=== PATIENT | female | born 1960 | race Caucasian/White ===

== ENCOUNTER 2017-03-28 06:54 | Day surgery (SDC) | payer BC, OTHER ==
[~2017-03-28 06:54] MED LIST: RINGER'S SOLUTION,LACTATED 1,000 ML IV PRN; ceFAZolin SODIUM 1 GM VIAL IV PRN
[2017-03-28] MEDS ORDERED: RINGER'S SOLUTION,LACTATED 1,000 ML IV ONE (07:33)
[2017-03-28] MEDS ORDERED: BUPIVACAINE HCL 50 ML VIAL IJ ONE ×3 (08:20)
--- NOTE | 2017-03-28 10:15 | POSTOP NO ---
Date of Surgery: 03/28/17 Patient Tolerated the Procedure: Well Post Operative Diagnosis/Procedures: Public Health Advisor: Thai Hector PA-C Post-operative Diagnosis: Left thumb carpometacarpal arthritis, volar radial wrist ganglion Finding: Above Procedure: Left thumb carpometacarpal arthroplasty, excision of volar radial wrist ganglion Estimated Blood Loss: Minimal Specimens: Bone for disposal, ganglion to pathology
--- NOTE | 2017-03-28 10:20 | OR ---
Operative Report - Dictated Report Narrative: Date: 03/28/2017 Surgeon: Francisco King M.D. Personal Banking Representative: Thai Hector PA-C Preoperative diagnosis: Left Thumb carpometacarpal arthrosis, volar radial wrist mass Postoperative diagnosis: Left Thumb carpometacarpal arthrosis, volar radial wrist mass Operation: Left Thumb resection suspension arthroplasty of the carpo-metacarpal joint, excision of volar radial wrist mass Retained implants: 0.45 smooth Mirna wire pin cap Anesthesia: General plus local Tourniquet time: 87 Minutes at 250 mmHg Estimated blood loss: Minimal Drains: None Specimen: Bone for disposal , wrist mass to pathology Complications: None Indications: Mrs. Allen is a 57-year-old female who is seen in the clinic for complaints of left thumb arthrosis and volar radial wrist mass. That failed conservative measures including but not limited to injections, medications, splinting, activity modification, and or therapy. Radiographs revealed advanced arthrosis of the thumb carpometacarpal joint and they wish to proceed with surgical treatment. The risks, benefits, and alternatives were discussed in the clinic. The risks of , blood clots, bleeding, infection, damage to nerve, tendon , or blood vessels, stiffness, weakness, persistent pain, deformity, and need for additional procedures were reviewed. She wished to proceed with the procedure. Procedure: After marking the correct extremity in the preoperative holding area, the patient was taken to the operating room and timeout was performed. IV antibiotics consisting of Ancef were administered. An attempt at starting with Mac anesthesia however she was uncomfortable and thus we transitioned to a general anesthetic by anesthesia per my request. A well-padded tourniquet was applied to the upper arm. The surgical arm was then prepped and draped in a standard sterile fashion. After exsanguinating the extremity, the tourniquet was inflated to 250 mmHg. A longitudinal incision approximately 6 cm in length was made centered over the dorsal aspect of the thumb carpometacarpal joint. This was bluntly dissected down to the subcutaneous tissue protecting the dorsal branch of the radial nerve and any other cutaneous nerves and vessels encountered. A capsulotomy and periosteal elevation was performed between the extensor pollicis brevis and extensor pollicis longus. The base of the thumb metacarpal as well as the trapezium were exposed and the soft tissues and capsule were elevated off this. Utilizing a oscillating saw, approximately 5 mm of the base of the thumb metacarpal was removed including the arthritic joint surface with the marginal osteophytes. The trapezium was then quartered and excised using a combination of ronguer and [place] blade. Care was taken to protect the deep flexor carpi radialis tendon. Once the trapezium was fully excised the flexor carpi radialis tendon was dissected down to its insertion on the index metacarpal and tagged with an umbilical tape. Next we excised the volar radial wrist mass. A longitudinal incision was made over the mass. Blunt dissection was carried down to just ulnar to the radial artery. The radial artery was identified and protected. The mass which the patient states was much larger prior appeared to be about 5-7 mm in size and consistent with a likely ganglion. This was traced down to its stalk near the joint which was transected and excised. Attention was then turned to the procurement of the flexor carpal radialis tendon over the volar forearm. 2 small transverse incisions were made at the distal and musculotendinous portions of the flexor carpi radialis tendon. Blunt dissection was carried through subcutaneous tissue down to the flexor tendon. The flexor carpal radius tendon was tagged distally and then transected at the muscle tendinous junction proximally and mobilized into the thumb wound. The muscle attached to the tendon was then removed using a scalpel. The tendon was wrapped in a moist Ray-Rajan sponge. A bur was utilized in order to make a tunnel through the base of the thumb metacarpal approximately a centimeter distal exiting over the volar and ulnar aspect of the thumb metacarpal in line with the thumb nail. This was enlarged to accommodate the tendon and the bony edges were burred to make this a smooth return of the tendon on itself. The tendon was then passed through the tunnel without any complications. A 0.45 smooth Mirna wire was placed through the thumb metacarpal into the index metacarpal using mini C-arm to confirm placement of the thumb in a pinch sap abap programmer position suspended at the level of the index metacarpal. 4-0 Ethibond suture was placed deep in the capsule in order to stabilize the tendon graft. 4-0 Ethibond was utilized in order to repair the tendon back to itself as well as to the periosteum as it exited the tunnel. The tendon was then rolled into an anchovy orientation and secured with 4-0 Ethibond suture. 2 Vj needles were placed in order to pass the previously placed 4-0 Ethibond which was deep in the resected trapezium area and passed through the tendon in order to secure the tendon into the base of the wound. This allowed for filling of the defect from the prior removed trapezium. The wounds were then thoroughly irrigated. Tourniquet was deflated and hemostasis was obtained with bipolar cautery. 4-0 nylon was used to close the tendon procurement site. 4-0 Vicryl was utilized in order to repair the joint capsule and periosteum onto the tendon graft. Subcutaneous 4-0 Vicryl and 4-0 nylon on the skin were utilized in order to close the thumb wound. The K wire was bent and capped outside the skin. Xeroform, 4 x 4's, soft roll, and a well-padded thumb spica splint were applied and the patient was awoken and transferred to postanesthesia care unit in stable condition. All sponge, needle, sharp, and instrument counts were correct prior to closing the wounds.
[2017-03-28] MEDS ORDERED: RINGER'S SOLUTION,LACTATED 1,000 ML IV PRN (11:32)
[2017-03-28] MEDS ORDERED: HYDROmorphone HCL 2 MG/ML VIAL IV PRN (11:34)
[2017-03-28] MEDS ORDERED: traMADol HCL 50 MG TABLET ONE (11:38)
[2017-03-28 11:56] VITALS: BP 153/79
[2017-03-28] MEDS ORDERED: traMADol HCL 50 MG TABLET PO ONE (12:00)
== END 2017-03-28 06:55 | disposition home or self-care (01) ==
LOC: AMB 06:54
PROVIDERS: ATTEND Orthopaedic Surgery
PROC: 0XBF0ZZ Excision of Left Lower Arm, Open Approach (ICD-10-PCS; 2017-03-28)
PROC: 0RUT07Z Supplement Left Carpometacarpal Joint with Autologous Tissue Substitute, Open Approach (ICD-10-PCS; principal; 2017-03-28 08:00)
PROC: 0LB60ZZ Excision of Left Lower Arm and Wrist Tendon, Open Approach (ICD-10-PCS; 2017-03-28 08:00)
DX: M18.12 Unilateral primary osteoarthritis of first carpometacarpal joint, left hand (principal); M67.432 Ganglion, left wrist; I10 Essential (primary) hypertension; F41.1 Generalized anxiety disorder; Z68.26 Body mass index [BMI] 26.0-26.9, adult

== ENCOUNTER 2019-10-21 06:09 | Inpatient (IN) ==
[~2019-10-21 06:09] MED LIST changes: -RINGER'S SOLUTION,LACTATED 1,000 ML IV PRN; +TRANEXAMIC ACID 1,000 MG in NORMAL SALINE 100 ML IV PRN
[2019-10-21] MEDS ORDERED: ceFAZolin SODIUM 1 GM VIAL ONE (07:03)
[2019-10-21] MEDS ORDERED: ISOPROPYL ALCOHOL 480 APPL BTL MC ONE (07:03)
[2019-10-21] MEDS: RINGER'S SOLUTION,LACTATED 1,000 ML IV PRN ×2 (07:13→08:45)
--- NOTE | 2019-10-21 07:13 | ANES ---
Anesthesia Pre Procedure Eval Vitals/Labs: Last Vital Signs Temp 36.2 C 10/21/19 06:39 Pulse 72 10/21/19 06:39 Resp 18 10/21/19 06:39 BP 146/85 H 10/21/19 06:39 Pulse Ox 99 10/21/19 06:39 HOME MEDICATIONS Calcium Carbonate/Vitamin D3 [Calcium 500+D Tablet Chew] 1 ea PO DAILY 06/26/15 [Last Taken 10/20/19] Cetirizine HCl [Zyrtec] 10 mg PO DAILY PRN 06/26/15 [Last Taken 03/27/18] Fluticasone Propionate [Flonase] 1 spray NS BID PRN 06/26/15 [Last Taken Unknown] Cholecalciferol (Vitamin D3) [Vitamin D] 2,000 unit PO DAILY 03/13/17 [Last Taken 10/20/19] sour head extract 1,000 mg capsule 600 mg PO BID cap 11/21/17 [Last Taken 10/16/19] ibuprofen 200 mg tablet 800 mg PO Q8H PRN tab 03/17/18 [Last Taken 10/13/19] olopatadine 0.1 % eye drops 1 drp OP BID PRN #5 ml 11/03/18 [Last Taken Unknown] propranolol 80 mg tablet 40 mg PO BID #45 tab 03/25/19 [Last Taken 10/21/19] alprazolam 0.25 mg tablet 0.25 mg PO TID PRN 30 Days #90 tab 05/20/19 [Last Taken 10/21/19] gabapentin 100 mg capsule 100 mg PO TID #270 cap 07/27/19 [Last Taken 10/20/19] dicyclomine 20 mg tablet 20 mg PO QID PRN #30 tab 09/14/19 [Last Taken Unknown] tramadol 50 mg tablet 50 mg PO Q6H PRN #60 tab 09/29/19 [Last Taken Unknown] gabapentin 300 mg capsule 300 mg PO HS #30 cap 10/04/19 [Last Taken 10/21/19] duloxetine 30 mg capsule,delayed release 30 mg PO DAILY #30 cap 10/05/19 [Last Taken 10/21/19] Diclofenac Sodium [Voltaren] 2 g TOPICAL TID PRN 10/21/19 [Last Taken Unknown] Pantoprazole Sodium 1 tab PO HS 10/21/19 [Last Taken 10/20/19] Allergies/Adverse Reactions: Allergies Allergy/AdvReac Type Severity Reaction Status Date / Time hydromorphone [From Dilaudid] AdvReac Severe severe Verified 10/21/19 06:31 vomiting meperidine HCl [From Demerol] AdvReac Severe SEVERE Verified 10/21/19 06:31 PROLONGED VOMITING trastuzumab [From Herceptin] AdvReac Severe Anaphylaxis Verified 10/21/19 06:31 - Planned Procedure Planned Procedure: Left Anatomic Total Shoulder Medication List Reviewed:: Yes Allergies Verified: Yes Medical History (Last Reviewed 10/21/19 @ 07:09 by Ok Parisi CRNA) Chemotherapy adverse reaction (Resolved) Fatigue due to treatment (Resolved) 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) Ganglion cyst (Acute) Cataracts, bilateral Non-tobacco user Seldom use of alcohol Wears glasses Arthritis Onset Date: Unknown Degenerative joint disease (DJD) of hip Onset Date: Unknown left Hypertension Onset Date: Unknown Migraine Onset Date: Unknown Post menopausal syndrome Onset Date: Unknown Right elbow pain Onset Date: Unknown Abnormal Pap smear of cervix over 30 years ago Anxiety Onset Date: Unknown Breast neoplasm Onset Date: Unknown left Cataract (lens) fragments in eye following cataract surgery, left eye Onset Date: ~03/01/19 Dislocation, metatarsophalangeal Onset Date: Unknown right 2nd and 3rd Hand pain Onset Date: Unknown Neuroma Onset Date: Unknown Trochanteric bursitis, left hip Onset Date: Unknown chemotherapy treatment Onset Date: 04/07/14 resolved Surgical History (Last Reviewed 10/21/19 @ 07:09 by Ok Parisi CRNA) H/O colonoscopy Onset Date: ~2004 [facility]-normal H/O foot surgery Onset Date: 06/25/15 R 2,3 MT head resections, excision neuroma H/O mastectomy Onset Date: 12/22/14 left History of arthroscopy of left knee Onset Date: ~1978 w/meniscal tear repair History of section Onset Date: ~1994 History of colposcopy History of esophagogastroduodenoscopy (EGD) Onset Date: ~2004 [facility] Hx of cholecystectomy Onset Date: ~2003 lap Right Thumb resection suspension arthroplasty of the carpo-m Onset Date: 03/27/18 Dr King S/P cataract surgery Onset Date: ~03/01/19 left - 03/01/19, right - 03/29/19 arthroplasty of cmc Onset Date: 03/28/17 left thumb resection suspension arthroplasty of the carpo-metacarpal joint, excision of volar radial wrist mass per Dr King, 03/27/18 right wrist by Family History (Last Reviewed 10/21/19 @ 07:09 by Ok Parisi CRNA) Father , 80 Diabetes AAA (abdominal aortic aneurysm) Heart disease Melanoma dx age 60's Myocardial infarction Mother , 90 Osteoporosis Heart disease Brother Alcoholism Son Sera Danlos syndrome, asthma, allergies Daughter Sera-Danlos syndrome type III Cerebral palsy with spastic diplegia Brother Diabetes Cancer of kidney dx age 60's Brother Diabetes Brother Liver cancer dx age 60's Bladder cancer dx age 60's Brother AAA (abdominal aortic aneurysm) - Family Anesthesia History Family History:: no untoward family reactions to anesthesia, no familial bleeding tendencies, no family history of clotting disorders, no family history of premature - Airway/Neck/Teeth Within Normal Limits:: Yes Teeth Condition: intact Mallampatti Score: 2 Thyromental (T-M) distance: > 6 cm Mandibulo Hyoid distance: > 3 cm - Respiratory Respiratory Physical: lungs clear Smoking Status: Never smoker Discussed smoking cessation including day of surgery: No Sleep Apnea currently treated: No Sleep Apnea by current assessment: No Discussed Risks/Treatment of KRISTOPHER: No - Gastrointestinal NPO since: mn - Anesthesia Assessment and Plan ASA Class: PS, II Anesthesia Type Plan: General LMA, Block - ultrasound guided interscalene nerve block for postop analgesia
[2019-10-21] MEDS ORDERED: fentaNYL CITRATE/PF 50 MCG/ML AMPUL ONE (07:27)
[2019-10-21] MEDS ORDERED: LIDOCAINE HCL 20 ML VIAL ONE (07:27)
[2019-10-21] MEDS ORDERED: ONDANSETRON HCL/PF 2 MG/ML VIAL ONE (07:27)
[2019-10-21] MEDS ORDERED: BUPIVACAINE HCL/EPINEPHRINE/PF 30 ML VIAL IJ ONE (07:27)
[2019-10-21] MEDS ORDERED: KETOROLAC TROMETHAMINE 30 MG/ML VIAL ONE (07:27)
[2019-10-21] MEDS ORDERED: PROPOFOL VIAL IV ONE (07:27)
[2019-10-21] MEDS ORDERED: MAG HYDROX/ALUMINUM HYD/SIMETH 30 ML UDC PO PRN (10:05)
[2019-10-21] MEDS ORDERED: ACETAMINOPHEN 500 MG TABLET PO PRN (10:05)
[2019-10-21] MEDS ORDERED: MAGNESIUM HYDROXIDE 30 ML UDC PO PRN (10:05)
[2019-10-21] MEDS ORDERED: NORMAL SALINE 1,000 ML IV PRN (10:05)
[2019-10-21] MEDS ORDERED: HYDROcodone/ACETAMINOPHEN 1 EACH TABLET PO PRN ×2 (10:05)
[2019-10-21] MEDS ORDERED: DICYCLOMINE HCL 20 MG TABLET PO PRN (10:11)
[2019-10-21] MEDS ORDERED: FLUTICASONE PROPIONATE 120 SPRAY INHALER NS PRN (10:11)
[2019-10-21] MEDS ORDERED: LORATADINE 10 MG TABLET PO PRN (10:11)
[2019-10-21] MEDS ORDERED: OLOPATADINE HCL 50 DROP BTL OP PRN (10:11)
[2019-10-21] MEDS ORDERED: ALPRAZolam 0.25 MG TABLET PO PRN (10:11)
--- NOTE | 2019-10-21 10:18 | OR ---
Operative Report - Dictated Report Narrative: Date: 10/21/2019 Physician: Mars Ceron M.D. Race Car Mechanic: Juanjose Macdonald PA-C provided a set of essential, skilled, educated hands that assisted in positioning, transfer, retraction, manipulation, irrigation, closure of wounds, and placement of dressings all of which could not be provided by the available surgical crew. Preoperative diagnosis: Left glenohumeral osteoarthritis Postoperative diagnosis: Left glenohumeral osteoarthritis Procedure: Left anatomic total shoulder arthroplasty Anesthesia: General plus regional Complications: None Estimated blood loss: 100 mL Specimens: Bone for disposal Retained implants: Depuy Global Unite size 10 standard stem, Global Unite anatomic proximal body size 10, Global Unite eccentric humeral head 44 mm x 18 mm, Global anchor peg glenoid size 40 mm Drains: None Indications: Ann is a 59 year-old female who has been followed in my clinic with complaints of shoulder pain consistent with left glenohumeral arthritis. Physical exam and diagnostic imaging were consistent with his complaints and concern for glenohumeral arthritis with an intact rotator cuff. Conservative measures have failed including, but not limited to, passage of time, activity modification, medications, physical therapy/home exercise program, or injections. The risks, benefits, and alternatives were discussed in clinic. The risks being , bleeding, infection, blood clots, nerve, tendon, ligament, blood vessel injury, persistent pain, arthrosis, stiffness, need for prolonged therapy, implant failure/loosening, need for additional procedures, and persistent symptoms. Consent was obtained in the clinic. Procedure: After marking the correct extremity in the preoperative holding area, a timeout was performed in the operating room. IV antibiotics consisting of 1 g of Ancef were administered prior to the procedure. A general followed by regional anesthetic was induced by the nurse operations manager station. This was in the supine position, then the patient was transitioned to a beachchair position with all bony prominences well-padded, head in neutral, the nonoperative arm well supported, and the legs padded with SCDs in place. The operative shoulder was then prepped and draped in a standard sterile fashion. Preoperatively the shoul alen had slightly limited abduction and external rotation. After marking out the bony landmarks, an approximately 10 cm deltopectoral incision was marked out and incised with a sharp knife. A combination of blunt dissection and electrocautery was carried down through subcutaneous tissue to the level of the deltopectoral fascia. The fascial interval was developed with Metzenbaum scissors identifying the cephalic vein which was protected. Blunt finger dissection was used to develop the deltopectoral interval and the deltoid and cephalic vein were retracted laterally while the pectoralis major was retracted medially. This revealed the conjoined tendon and anterior aspect of the shoulder. The bicipital groove was identified as well as the lesser tuberosity and we marked out our location for our subscapularis tenotomy. The subscapularis tendon was tagged with Vicryl suture and then peeled off of its insertion. Our incision was carried up through the rotator cuff interval to the level of the glenoid. The inferior aspect of the subscapularis as well as the inferior capsule was released taking care to protect the axillary nerve. The capsule was then released from the anterior and inferior aspects of the glenoid. At this point the arm was externally rotated and the shoulder dislocated delivering the humeral head up and out of the wound. The supraspinatus tendon was inspected and noted to be intact. At this point we identified our starting point for the humeral starting reamer centered over the intramedullary canal just onto the articular surface of the superior aspect of the humeral head. The entry reamer was advanced down the intramedullary canal of the humerus. Sequential hand reaming up to a size 10 mm reamer was performed achieving good chatter cortical chatter. The reamer was left in place and then the humeral head cutting jig was attached. This was placed in approximately 25 of retroversion at the appropriate height based on the level of the greater tu berosity. This was then pinned into place and the reamer removed. The humeral head was then resected being careful to protect the supraspinatus insertion. A rongeur was used to clean up some anterior and inferior osteophyte. A protective metal cap was then placed over the cut end of the proximal humerus. Attention was then turned to the glenoid. A series of glenoid retractors were used to retract the humeral head posteriorly and inferior out of the way well as to retract the anterior soft tissue giving us 360 exposure of the glenoid. The labrum was then removed in its entirety with a sharp knife. The base of the coracoid was identified as well as the inferior/lateral border of the scapula and these were marked out to establish the bony anatomy of the glenoid. The glenoid was sized to a 40 mm component. The glenoid guide was then placed in the appropriate position and the center guide pin was advanced into place. The glenoid was then reamed removing all cartilage and soft tissue being careful to preserve subchondral bone. The central peg drill was then advanced down over our central pin and drilled. The drill guide for the peripheral pegs was then placed with one peg superiorly and two pegs inferiorly. These were sequentially drilled. The guide was then removed. The glenoid was then irrigated and thoroughly dried and bone cement was packed into the peripheral peg holes. A size 40 mm Global anchor peg glenoid was then impacted into place. Once the cement had adequately cured we turned our attention back to the humerus. A size 10 broach was advanced into the appropriate position once again in 25 of retroversion. A size 10 trial humeral stem was then impacted into place and we began trialing humeral heads. It was determined that a size 44 x 18 mm ecc entric head with the eccentricity placed anterior and inferior at approximately 4:30 gave us the best fit with good stability. Full passive range of motion was able to be obtained. The final 10 mm humeral component was then assembled on the back table and then impacted into its final position in the appropriate amount of retroversion. We then re-trialed our humeral head to confirm the appropriate size. The final humeral head was then impacted into place with the eccentricity placed appropriately. A final check demonstrated full passive range of motion with good stability. At this point the wound was copiously irrigated with normal saline. The subscapularis was repaired with #2 Fiberwire through bone tunnels. This was then oversewn with 1 Vicryl. 0 Vicryl was utilized in order to close the delto-pectoral fascia. 3-0 Vicryl was placed in the subcutaneous tissue. Skin was closed with a running subcuticular 4-0 Monocryl. Dressings consisting of Prineo, 4 x 4, ABD, and tape were applied. The operative arm was then placed in a shoulder immobilizer. All sponge, needle, blade, and instrument counts were correct prior to closing the wounds. The patient was awoken and transferred to the postanesthesia care unit in stable condition.
--- NOTE | 2019-10-21 10:24 | ANES ---
Post Anesthesia Discharge - Transfer of Care Transfer of Care handoff given to nurse: Yes - Discharge from PACU Discharge from PACU when meets criteria: Yes - Discharge to ASU Discharge to ASU-no complications/pt stable: Yes
--- NOTE | 2019-10-21 10:27 | ANES ---
Anesthesia Procedure Note Procedure Note: ANESTHESIA PROCEDURE NOTE Date of Procedure: 10/21/2019. Time of procedure: 724. Performed by: Ok Parisi CRNA Box Turner: None. Preprocedure diagnosis: Left glenohumeral osteoarthritis. Post procedure diagnosis: Same. Procedure: Left ultrasound guided interscalene nerve block for postoperative analgesia. Indications: The patient is a 59-year-old female, requesting left ultrasound- guided interscalene nerve block for postoperative analgesia related to left anatomic total shoulder arthroplasty. Findings: See below. Details of the procedure: The tissue over the intended target site was cleansed with ChloraPrep. 1 ml Lidocaine 1 % was infiltrated to the skin and subcutaneous tissue. Under sterile technique and ultrasound guidance a 22-gauge block needle was inserted to the left brachial plexus nerve bundle between the anterior scalene and the middle scalene muscles. 30 mL's of 0.5% bupivacaine plus epinephrine 1:200,000 was injected after negative aspiration for blood. Needle tip and spread of local anesthetic around the brachial plexus was observed throughout the injection with realtime ultrasound visualization. The needle was removed intact. No complications were noted. The images were retained in the hospital medical database. EBL: Minimal. Fluids: N/A. Specimen: N/A. Post procedure condition: The patient tolerated the procedure well. No complications were noted. Thank you for this consultation. Ok Parisi CRNA
--- NOTE | 2019-10-21 13:39 | ANES ---
Post Anesthesia Assessment - Vital Signs Vitals: Last Vital Signs Temp 35.7 C L 10/21/19 10:53 Pulse 76 10/21/19 10:53 Resp 14 10/21/19 10:53 BP 141/114 H 10/21/19 10:53 Pulse Ox 98 10/21/19 10:53 Airway Patency: Normal - Mental Status Level Of Consciousness: Awake - Pain Level Pain Score: 0 - N/V Assessment Nausea/Vomiting Presence: None Dehydration:: No
[2019-10-21] MEDS: GABAPENTIN 100 MG CAPSULE PO SCH ×3 (13:42→17:18)
[2019-10-21] MEDS: CEFAZOLIN SODIUM/DEXTROSE,ISO 1 GM/50 ML BAG IV SCH ×2 (13:45→21:44)
[2019-10-21] MEDS: ONDANSETRON HCL/PF 2 MG/ML VIAL IV PRN (19:48)
[2019-10-21] MEDS: PROPRANOLOL HCL 20 MG TABLET PO SCH (20:57)
[2019-10-21] MEDS ORDERED: GABAPENTIN 300 MG CAPSULE PO SCH (21:00)
[2019-10-21] MEDS ORDERED: PANTOPRAZOLE SODIUM 40 MG TABLET.EC PO SCH (21:00)
[2019-10-21] MEDS ORDERED: SENNOSIDES/DOCUSATE SODIUM 1 TAB TABLET PO SCH (21:00)
[2019-10-21] MEDS: CYCLOBENZAPRINE HCL 10 MG TABLET PO PRN (21:17)
[2019-10-21] MEDS: MORPHINE SULFATE 2 MG/ML DISP.SYRIN IV PRN (23:05)
[2019-10-22] MEDS: MORPHINE SULFATE 2 MG/ML DISP.SYRIN IV PRN ×2 (00:06→01:29)
[2019-10-22] MEDS ORDERED: oxyCODONE HCL/ACETAMINOPHEN 1 TAB TABLET PO PRN (01:19)
[2019-10-22] MEDS ORDERED: KETOROLAC TROMETHAMINE 30 MG/ML VIAL IV ONE (01:20)
[2019-10-22] MEDS: oxyCODONE HCL/ACETAMINOPHEN 1 TAB TABLET PO PRN ×4 (01:28→16:05)
[2019-10-22] MEDS: ONDANSETRON HCL/PF 2 MG/ML VIAL IV PRN ×3 (01:28→16:11)
[2019-10-22] MEDS: CEFAZOLIN SODIUM/DEXTROSE,ISO 1 GM/50 ML BAG IV SCH (05:34)
[2019-10-22] MEDS: GABAPENTIN 100 MG CAPSULE PO SCH ×3 (08:03→16:06)
[2019-10-22] MEDS: PROPRANOLOL HCL 20 MG TABLET PO SCH (08:03)
[2019-10-22] MEDS ORDERED: CHOLECALCIFEROL 1,000 UNIT CAPSULE PO SCH (09:00)
[2019-10-22] MEDS ORDERED: DULoxetine HCL 30 MG CAPSULE.SA PO SCH (09:00)
[2019-10-22] MEDS ORDERED: CALCIUM CARBONATE/VITAMIN D3 1 TAB TABLET PO SCH (09:00)
[2019-10-22] MEDS: CYCLOBENZAPRINE HCL 10 MG TABLET PO PRN (10:13)
--- NOTE | 2019-10-22 12:08 | DS ---
(1) Status post total replacement of left shoulder Problem: Acute Date of Discharge:: 10/22/19 Hospital Course: -59 y/o female postop day 1 status post left anatomic total shoulder arthroplasty. Patient has had an uncomplicated stay, she has battled mild pain control as well as muscle spasms. Patient's medicines have been adjusted and now appears to be maintaining appropriate postoperative goals for pain/discomfort. 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 The symptoms have resolved patient will complete PT/OT today per protocol as well as doing her home exercise plan. Patient is returned to a p.o. diet without significant complication she will be prescribed Zofran. Patient's muscle spasms have improved she will continue with Flexeril PRN. Discussed postoperative care with patient in detail. Expressed understanding agree with this treatment plan. Plan for patient be discharged home she will continue with the following recommendations: -Nonweightbearing left upper extremity -Maintain sling immobilizer in place left upper extremity -PT/OT progress as tolerated per protocol, avoidance of external rotation -P.o. diet as tolerated -Pain medication PRN -DVT prophylaxis 325 mg aspirin twice daily for 1 week followed by 325 mg aspirin daily for 6 weeks -Begin outpatient PT with follow-up in orthopedic outpatient clinic at 2 weeks postop -Maintain pernio dressing in place, monitor for erythema or drainage -Disposition: Discharge home, begin outpatient PT/OT Procedures Performed: see notes below List Procedures: Status post left total shoulder arthroplasty Discharge Location: Home Disposition: Home self-care Condition: Stable Discharge Activity: Activity as tolerated, Non-Weight bearing - Left upper extremity, sling immobilizer in place Discharge Diet: General/regular food Referrals: Nehemias Torres DO [Primary Care Provider] - Francisco King MD [Staff Physician] - 11/05/19 9:00 am Problem Oriented Discharge Instructions to Patient/Family: Shoulder Joint Replacement, Care After Print Language (Georgian or Icelandic Available): Georgian Additional Patient Instructions (free text): Physical Therapy at [facility] outpatient rehab department on FridayOctober 24 at 10:00am. Follow up Orthopedic office appointment on FridayNovember 04, at 9:00am. Prescriptions (Any new or edited meds): Cyclobenzaprine HCl [Flexeril] 10 mg PO TID PRN #30 tab PRN Reason: MUSCLE SPASMS Transmission Status: Pending to [facility] #[id number] oxyCODONE HCL/ACETAMINOPHEN [Percocet 5 MG/325 MG] 1 - 2 tab PO Q4H PRN #60 tablet PRN Reason: Moderate Pain (Pain Scale 4-6) Transmission Status: Sent to [facility] #[id number] Ondansetron [Zofran Odt] 4 mg PO Q6H PRN #20 tab PRN Reason: Nausea Transmission Status: Pending to [facility] #[id number] Complete Home Medications List: Complete Home Medication List: Calcium Carbonate/Vitamin D3 [Calcium 500+D Tablet Chew] 1 ea PO DAILY 06/26/15 Cetirizine HCl [Zyrtec] 10 mg PO DAILY PRN 06/26/15 Fluticasone Propionate [Flonase] 1 spray NS BID PRN 06/26/15 Cholecalciferol (Vitamin D3) [Vitamin D] 2,000 unit PO DAILY 03/13/17 sour head extract 1,000 mg capsule 600 mg PO BID cap 11/21/17 ibuprofen 200 mg tablet 800 mg PO Q8H PRN tab 03/17/18 olopatadine 0.1 % eye drops 1 drp OP BID PRN #5 ml 11/03/18 propranolol 80 mg tablet 40 mg PO BID #45 tab 03/25/19 alprazolam 0.25 mg tablet 0.25 mg PO TID PRN 30 Days #90 tab 05/20/19 gabapentin 100 mg capsule 100 mg PO TID #270 cap 07/27/19 dicyclomine 20 mg tablet 20 mg PO QID PRN #30 tab 09/14/19 tramadol 50 mg tablet 50 mg PO Q6H PRN #60 tab 09/29/19 gabapentin 300 mg capsule 300 mg PO HS #30 cap 10/04/19 duloxetine 30 mg capsule,delayed release 30 mg PO DAILY #30 cap 10/05/19 Diclofenac Sodium [Voltaren] 2 g TOPICAL TID PRN 10/21/19 Pantoprazole Sodium 1 tab PO HS 10/21/19 Cyclobenzaprine HCl [Flexeril] 10 mg PO TID PRN #30 tab 10/22/19 Ondansetron [Zofran Odt] 4 mg PO Q6H PRN #20 tab 10/22/19 oxyCODONE HCL/ACETAMINOPHEN [Percocet 5 MG/325 MG] 1 - 2 tab PO Q4H PRN #60 tablet 10/22/19 Amb Orders for Discharge: OT Evaluation and Treatment Location: None Selected PT Evaluation and Treatment* Location: None Selected
[2019-10-22 17:22] VITALS: BP 126/65
== END 2019-10-22 17:52 | disposition home or self-care (01) | DRG 483 ==
LOC: MS 06:09
PROVIDERS: ADMIT Orthopaedic Surgery; ATTEND Orthopaedic Surgery
DX: Q79.60 Ehlers-Danlos syndrome, unspecified; M19.012 Primary osteoarthritis, left shoulder; I10 Essential (primary) hypertension
CPT/HCPCS: 73030; 97140; 97165; J2405